=== PATIENT | female | born 1970 | race Caucasian/White ===

== ENCOUNTER 2017-11-08 00:32 | Emergency (ER) | payer SELFPAY ==
--- NOTE | 2017-11-08 00:57 | Emergency Department Record ---
History of Present Illness - General Chief complaint: Rash Stated complaint: ALLERGY ISSUES Time Seen by Provider: 11/08/17 00:55 Source: Patient Mode of Arrival: Ambulatory Limitations: No limitations - History of Present Illness Initial comments: The patient is here due to a pruritic skin rash over the last 2 days all over her body. She has had multiple chemical exposures and also came in contact with a cat and now has had an intermittent body rash that is very itchy. She denies any TOBY, SOB, or difficulty swallowing but does have mild chest heaviness like she gets with allergic rxn's. There is no hx of any cardiac issues and no CP with exertion. MD complaint: Rash Onset/Timin -: Days(s) Hx Tetanus Toxoid Vaccination: Yes Year of Tetanus Vaccination: 5 yr ago Location: Chest, LUE, RUE Improves with: Medication, Topical medication Associated symptoms: Itching Treatments Prior to Arrival: Benadryl, OTC topical medication - Related Data Home Medications Medication Instructions Recorded Confirmed Last Taken Famotidine [Pepcid AC] 10 mg PO DAILY 11/08/17 11/08/17 Unknown [place] 300 mg PO QAM 11/08/17 11/08/17 Unknown [place] 600 mg PO QHS 11/08/17 11/08/17 Unknown Previous Rx's Medication Instructions Recorded Prednisone [Prednisone 20Mg] 40 mg PO DAILY #8 tab 11/08/17 Allergies Allergy/AdvReac Type Severity Reaction Status Date / Time levofloxacin [From Levaquin] Allergy VOMITING Verified 09/23/13 12:51 sulfamethoxazole Allergy ITCHING Verified 09/23/13 12:51 [From Bactrim] trimethoprim [From Bactrim] Allergy ITCHING Verified 09/23/13 12:51 Travel Screening - Travel/Exposure Within Last 30 Days Have you traveled within the last 30 days?: No - Travel Symptoms Symptom Screening: None Review of Systems Constitutional: Denies: Chills, Fever Eyes: Denies: Eye discharge ENT: Denies: Congestion Respiratory: Denies: Cough, Dyspnea Past Medical History - SOCIAL HISTORY Smoking Status: Never smoker - RESPIRATORY Hx Respiratory Disorders: Yes Hx Asthma: No Comment:: environmental allergies - CARDIOVASCULAR Hx Cardio Disorders: Yes Hx Deep Vein Thrombosis: Yes (L leg) - NEURO Hx Neuro Disorders: Yes Hx Headaches: Yes Hx Seizures: Yes Comment:: cranial shingles - GI Hx GI Disorders: Yes Hx Reflux: Yes Hx Hiatal Hernia: Yes - Hx Genitourinary Disorders: No - ENDOCRINE Hx Endocrine Disorders: No - MUSCULOSKELETAL Hx Musculoskeletal Disorders: Yes Comment:: Gene of lupus - PSYCH Hx Psych Problems: Yes Hx Anxiety: Yes - HEMATOLOGY/ONCOLOGY Hx Hematology/Oncology Disorders: Yes Hx Clotting Problems: Yes Comment:: factor V Family Medical History Any Significant Family History?: Yes Hx Heart Disease: Mother Hx Stroke: Mother, Grandparents Physical Exam - General General Appearance: Alert, Oriented x3, Cooperative, No acute distress - Head Head exam: Atraumatic, Normocephalic, Normal inspection - Eye Eye exam: Normal appearance, PERRL - ENT Throat exam: Normal inspection. negative: Tonsillar erythema, Tonsillar exudate - Neck Neck exam: Normal inspection, Full ROM. negative: Tenderness - Respiratory Respiratory exam: Normal lung sounds bilaterally. negative: Respiratory distress - Cardiovascular Cardiovascular Exam: Regular rate, Normal rhythm, Normal heart sounds - GI/Abdominal GI/Abdominal exam: Soft, Normal bowel sounds. negative: Tenderness - Extremities Extremities exam: Normal inspection, Full ROM, Normal capillary refill. negative: Tenderness - Neurological Neurological exam: Alert. negative: Motor sensory deficit - Skin Skin exam: Rash (There is a scattered papular erythematous rash to the trunk and extremities. The lesions are anywhere from 3-8 mm in size and do joshua. They are very pruritic. ) Course Vital Signs 11/08/17 00:41 Temperature 98.4 F Pulse Rate [ 83 Pulse Ox Probe] Respiratory 18 Rate Blood Pressure 140/79 [Left Arm] Pulse Ox 96 - Reevaluation(s) Reevaluation #1: The patient is doing very well at this time. I did explain to her that her EKG has subtle changes that are probably normal for her. Due to the fact I cannot locate an old EKG I did recommend lab work and cardiac enzymes but the patient is refusing. I did explain to her that the risks of refusing are that she could go home and have an PR, become disabled, have a stroke, need a heart transplant and even . The patient understands and accepts the risks. She presently has proper decision making capacity. She is to F/U with her PCP for recheck early next week. 11/08/17 01:50 Medical Decision Making - Data Complexity MDM Data: EKG Ordered and/or Reviewed - EKG Data -: EKG Interpreted by Me EKG: No Acute Changes (NSR at 95, nonspecific ST-T changes diffuse leads. ) Disposition Disposition: Discharge Clinical Impression: Skin rash Disposition: Home, Self-Care Condition: (2) Stable Instructions: Acute Rash (ED) Additional Instructions: PLease continue the Benadryl at home and also continue the Prednisone. Please see your family doctor for recheck tomorrow or Sunday. Return to the ER for any worsening symptoms. Prescriptions: Prednisone [Prednisone 20Mg] 40 mg PO DAILY #8 tab Forms: Patient Portal Access Time of Disposition: 01:53 Quality - Quality Measures Quality Measures: N/A - Blood Pressure Screening View Details: Yes Does Patient Have Any of the Following: No Blood Pressure Classification: Hypertensive Reading Systolic Measurement: 152 Diastolic Measurement: 76 Screening for High Blood Pressure: < First Hypertensive BP, F/U Documented > [ G8950] First Hypertensive Follow-up Interventions: Referral to alternative/primary care provider.
[2017-11-08] MEDS ORDERED: PREDNISONE 20 MG TAB PO ONE (01:10)
== END 2017-11-08 02:00 | disposition home or self-care (01) ==
LOC: ER 00:32
DX: L25.9 Unspecified contact dermatitis, unspecified cause (principal); R07.89 Other chest pain
CPT/HCPCS: 99283 ×2; 93005; 93010; J7512

== ENCOUNTER 2018-03-06 16:05 | Emergency (ER) | payer SELFPAY ==
--- NOTE | 2018-03-06 16:30 | Emergency Department Record ---
History of Present Illness - General Chief Complaint: Mental health evaluation Stated Complaint: PSYCH Time Seen by Provider: 03/06/18 16:17 Source: Patient, EMS Mode of Arrival: EMS Limitations: No limitations Travel/Exposure to [place] Within 21 Days of Symptoms: No - History of Present Illness Initial Comments: The patient is here due to acting irrationally today. She was outside walking her dog with no shirt on then did get locked out of her house. She then misplaced her car and because of those issues did call 911 to bring her to the ER for help. The patient states she would like to go to [facility] where she has been in the past. She denies any suicidal or homicidal ideation. The patient does have a hx of Bipolar and Anxiety and did recently stop her [place]. MD Complaint: Other Onset/Timin -: Hour(s) Associated Psychiatric Symptoms: Other Context: Not taking psychiatric medications - [place] Coma Scale Eye Response: (4) Open spontaneously Motor Response: (6) Obeys commands Verbal Response: (5) Oriented [place] Total: 15 - Related Data Allergies Allergy/AdvReac Type Severity Reaction Status Date / Time levofloxacin [From Levaquin] Allergy VOMITING Verified 03/06/18 16:13 sulfamethoxazole Allergy ITCHING Verified 03/06/18 16:13 [From Bactrim] trimethoprim [From Bactrim] Allergy ITCHING Verified 03/06/18 16:13 Past Medical History - SOCIAL HISTORY Smoking Status: Never smoker Alcohol Use: None Drug Use: None - RESPIRATORY Hx Respiratory Disorders: Yes Hx Asthma: No Comment:: environmental allergies - CARDIOVASCULAR Hx Cardio Disorders: Yes Hx Deep Vein Thrombosis: Yes (L leg) - NEURO Hx Neuro Disorders: Yes Hx Headaches: Yes Hx Seizures: Yes Comment:: cranial shingles - GI Hx GI Disorders: Yes Hx Reflux: Yes Hx Hiatal Hernia: Yes - Hx Genitourinary Disorders: No - ENDOCRINE Hx Endocrine Disorders: No - MUSCULOSKELETAL Hx Musculoskeletal Disorders: Yes Comment:: Gene of lupus - PSYCH Hx Psych Problems: Yes Hx Anxiety: Yes - HEMATOLOGY/ONCOLOGY Hx Hematology/Oncology Disorders: Yes Hx Clotting Problems: Yes Comment:: factor V Family Medical History Any Significant Family History?: Yes Hx Heart Disease: Mother Hx Stroke: Mother, Grandparents Physical Exam - General General Appearance: Alert, Oriented x3, Cooperative, No acute distress - Head Head exam: Atraumatic, Normocephalic, Normal inspection - Eye Eye exam: Normal appearance, PERRL, EOMI - Neck Neck exam: Normal inspection, Full ROM. negative: Tenderness - Respiratory Respiratory exam: Normal lung sounds bilaterally. negative: Respiratory distress - Cardiovascular Cardiovascular Exam: Regular rate, Normal rhythm, Normal heart sounds - GI/Abdominal GI/Abdominal exam: Soft, Normal bowel sounds. negative: Tenderness - Extremities Extremities exam: Normal inspection, Full ROM, Normal capillary refill. negative: Tenderness - Back Back exam: Reports: Normal inspection - Neurological Neurological exam: Alert, Normal gait, Oriented X3. negative: Abnormal gait, Altered, Motor sensory deficit - Psychiatric Psychiatric exam: Normal affect, Normal mood. negative: Anxious, Depressed, Flat affect Course Vital Signs 03/06/18 16:16 Temperature 98 F Pulse Rate 97 H Respiratory 20 Rate Blood Pressure 144/79 Pulse Ox 100 - Reevaluation(s) Reevaluation #1: The patient is resting comfortably. She denies any problems or pain. I did discuss the lab results and the need for transfer to [facility]. The patient is intermittently talking to imaginary people in the room and laughing to herself. 03/06/18 18:21 03/06/18 18:31 Reevaluation #2: I did discuss the case with a [facility] continuous pillowcase cutter and she is aware of the patient and the fact we are waiting on the [place] level. We will start faxing the results to the patient. 03/06/18 18:28 Medical Decision Making - Data Complexity MDM Data: Labs Ordered and/or Reviewed - Lab Data Result diagrams: 03/06/18 16:35 03/06/18 16:35 Disposition Disposition: Transfer Clinical Impression: Psychosis Qualifiers: Psychosis type: unspecified psychosis type Qualified Code(s): F29 - Unspecified psychosis not due to a substance or known physiological condition Disposition: Psychiatric Hospital Transfer To: [facility] Reason For Transfer: Psych. Accepting Physician: Adam Time Discussed w/Accepting Physician: 18:24 Condition: (2) Stable Instructions: Psychotic Disorder (ED) Forms: Patient Portal Access Time of Disposition: 18:24 Quality - Quality Measures Quality Measures: N/A - Blood Pressure Screening View Details: Yes Does Patient Have Any of the Following: No Blood Pressure Classification: Pre-Hypertensive BP Reading Systolic Measurement: 126 Diastolic Measurement: 78 Screening for High Blood Pressure: < Pre-Hypertensive BP, F/U Documented > [ G8950] Pre-Hypertensive Follow-up Interventions: Referral to alternative/primary care provider.
[2018-03-06 16:44] LABS: BASO % 0.8 % (0-6); EOS % 2.3 % (0-6); GRAN % 74.8 % (47-80); HEMATOCRIT 40.4 % (35.0-47.0); LYMPH % 15.4 % (16-45); MEAN CELL VOLUME 91.4 fl (81-97); MEAN CORPUSCULAR HEMOGLOBIN 29.4 pg (27-33); MEAN CORPUSCULAR HGB CONC 32.2 g/dl (32-36); MEAN PLATELET VOLUME 9.4 fl (7.4-10.4); MONO % 6.7 % (0-9); PLATELET COUNT 356 K/uL (130-400); RED BLOOD COUNT 4.42 M/uL (3.80-5.40); RED CELL DISTRIBUTION WIDTH 12.6 % (11.5-14.5); WHITE BLOOD COUNT W/O DIFF 8.7 K/uL (4.2-12.2)
[2018-03-06 16:58] LABS: BILIRUBIN,TOTAL 0.4 mg/dL (0.2-1.0); CREATININE 1.1 mg/dL (0.5-0.9)
[2018-03-06 16:59] LABS: TOTAL PROTEIN 7.8 g/dL (6.6-8.7)
[2018-03-06 17:03] LABS: ALB/GLOB RATIO 1.4 (1.1-1.8); ALBUMIN 4.6 g/dL (4.0-5.0)
[2018-03-06 17:15] LABS: ACETAMINOPHEN < 0.5 ug/mL (10.0-30.0); SALICYLATE 1.2 mg/dL (2.8-20)
[2018-03-06 17:49] LABS: URINE APPEARANCE CLEAR; URINE BILIRUBIN NEGATIVE (NEGATIVE); URINE BLOOD TRACE-I (NEGATIVE); URINE COLOR YELLOW; URINE GLUCOSE (UA) NEGATIVE (NEGATIVE); URINE KETONE TRACE (NEGATIVE); URINE LEUKOCYTE ESTERASE NEGATIVE (NEGATIVE); URINE NITRITE NEGATIVE (NEGATIVE); URINE PROTEIN NEGATIVE (NEGATIVE); URINE UROBILINOGEN 0.2 E.U./dL (0.20 - 1.00)
[2018-03-06 17:52] LABS: AMPHETAMINE SCREEN URINE NOT DETECTED; BARBITURATE SCREEN URINE NOT DETECTED; BENZODIAZEPINE SCREEN URINE NOT DETECTED; COCAINE SCREEN URINE NOT DETECTED; METHADONE SCREEN URINE NOT DETECTED; METHAMPHETAMINE SCREEN NOT DETECTED; OPIATE SCREEN URINE NOT DETECTED; OXYCODONE SCREEN URINE NOT DETECTED; PHENCYCLIDINE SCREEN URINE NOT DETECTED; PROPOXYPHENE SCREEN URINE NOT DETECTED; THC SCREEN URINE NOT DETECTED; TRICYCLIC ANTIDEPRESSANT SCRN NOT DETECTED
[2018-03-06 17:59] LABS: URINE RBC 0 - 2 (NONE SEEN); URINE WBC NONE SEEN (0-2/hpf)
--- NOTE | 2018-03-06 22:38 | Emergency Department Record ---
History of Present Illness - General Chief Complaint: Mental health evaluation Stated Complaint: PSYCH Time Seen by Provider: 03/06/18 16:17 Source: Patient, EMS Mode of Arrival: EMS Travel/Exposure to [place] Within 21 Days of Symptoms: No - History of Present Illness Onset/Timin -: Hour(s) Associated Psychiatric Symptoms: Other Context: Not taking psychiatric medications - [place] Coma Scale Eye Response: (4) Open spontaneously Motor Response: (6) Obeys commands Verbal Response: (5) Oriented [place] Total: 15 - Related Data Allergies Allergy/AdvReac Type Severity Reaction Status Date / Time levofloxacin [From Levaquin] Allergy VOMITING Verified 03/06/18 16:13 sulfamethoxazole Allergy ITCHING Verified 03/06/18 16:13 [From Bactrim] trimethoprim [From Bactrim] Allergy ITCHING Verified 03/06/18 16:13 Past Medical History - SOCIAL HISTORY Smoking Status: Never smoker Alcohol Use: None Drug Use: None - RESPIRATORY Hx Respiratory Disorders: Yes Hx Asthma: No Comment:: environmental allergies - CARDIOVASCULAR Hx Cardio Disorders: Yes Hx Deep Vein Thrombosis: Yes (L leg) - NEURO Hx Neuro Disorders: Yes Hx Headaches: Yes Hx Seizures: Yes Comment:: cranial shingles - GI Hx GI Disorders: Yes Hx Reflux: Yes Hx Hiatal Hernia: Yes - Hx Genitourinary Disorders: No - ENDOCRINE Hx Endocrine Disorders: No - MUSCULOSKELETAL Hx Musculoskeletal Disorders: Yes Comment:: Gene of lupus - PSYCH Hx Psych Problems: Yes Hx Anxiety: Yes - HEMATOLOGY/ONCOLOGY Hx Hematology/Oncology Disorders: Yes Hx Clotting Problems: Yes Comment:: factor V Family Medical History Any Significant Family History?: Yes Hx Heart Disease: Mother Hx Stroke: Mother, Grandparents Physical Exam - General Limitations: No limitations Course Vital Signs 03/06/18 03/06/18 03/06/18 16:16 18:34 19:51 Temperature 98 F Pulse Rate 97 H Pulse Rate [ 95 H 97 H Pulse Ox Probe] Respiratory 20 20 18 Rate Blood Pressure 144/79 Blood Pressure 154/82 166/99 [Left Arm] Pulse Ox 100 99 100 - Reevaluation(s) Reevaluation #1: 20:30 PM [place] level reported to be 0.7, copy faxed to [facility] for review. 21:34 PM [facility] contacted re: timeline for evaluation, they are reviewing patient's chart at this time. Waiting for discharges/transfers to make room at [facility] for evaluation. 22:22 PM [facility] returned call, report that the patient does have insurance. Patient reports that she does not have active insurance, registration cannot find the patient in any current insurance database. Patient reports that she is recently , may have been on SO's insurance previously. 22:30 PM [facility] contacted to let them know, they will wait for the "next shift to come on" for further evaluation. 03/06/18 23:39 Rewritten certification and [place] lab refaxed to [facility] for review. Patient is resting comfortably after oral Zyprexa. 03/07/18 01:09 [facility] has accepted the patient for transfer. EMS contacted for transfer. Medical Decision Making - Lab Data Result diagrams: 03/06/18 16:35 03/06/18 16:35 Lab Results 03/06/18 03/06/18 03/06/18 Range/Units 16:35 16:35 16:35 WBC 8.7 (4.2-12.2) K/uL RBC 4.42 (3.80-5.40) M/uL Hgb 13.0 (11.6-16.0) gm/dl Hct 40.4 (35.0-47.0) % MCV 91.4 (81-97) fl MCH 29.4 (27-33) pg MCHC 32.2 (32-36) g/dl RDW 12.6 (11.5-14.5) % Plt Count 356 (130-400) K/uL MPV 9.4 (7.4-10.4) fl Gran % 74.8 (47-80) % Lymphocytes % 15.4 L (16-45) % Monocytes % 6.7 (0-9) % Eosinophils % 2.3 (0-6) % Basophils % 0.8 (0-6) % Sodium 142 (136-145) mmol/L Potassium 3.8 (3.4-4.5) mmol/L Chloride 102 (98-107) mmol/L Carbon Dioxide 27.0 (22-29) mmol/L Anion Gap 13.0 (7-16) BUN 16 (6-20) mg/dL Creatinine 1.1 H (0.5-0.9) mg/dL Estimated GFR 57 mL/min Random Glucose 131 H (74-109) mg/dL Calcium 10.7 H (8.6-10.0) mg/dL Total Bilirubin 0.40 (0.2-1.0) mg/dL AST 20 (10.0-35.0) U/L ALT 30 (<33) U/L Alkaline Phosphatase 87 (35-104) U/L Total Protein 7.8 (6.6-8.7) g/dL Albumin 4.6 (4.0-5.0) g/dL Globulin 3.2 (1.4-4.8) gm/dL Albumin/Globulin Ratio 1.4 (1.1-1.8) Serum HCG, Qual Negative (NEGATIVE) Urine Color Urine Appearance Urine pH (5.0-8.0) Ur Specific [place] (1.002-1.030) Urine Protein (NEGATIVE) Urine Glucose (UA) (NEGATIVE) Urine Ketones (NEGATIVE) Urine Blood (NEGATIVE) Urine Nitrite (NEGATIVE) Urine Bilirubin (NEGATIVE) Urine Urobilinogen (0.20 - 1.00) E.U./dL Ur Leukocyte Esterase (NEGATIVE) Urine RBC (NONE SEEN) Urine WBC (0-2/hpf) Ur Epithelial Cells (FEW) Salicylates (2.8-20) mg/dL Urine Opiates Screen Ur Oxycodone Screen Urine Methadone Screen Ur Propoxyphene Screen Acetaminophen (10.0-30.0) ug/mL Ur Barbituates Screen Ur Tricyclics Screen Ur Phencyclidine Scrn Ur Amphetamine Screen U Methamphetamines Scrn U Benzodiazepines Scrn [place] (0.5-1.2) mmol/L Urine Cocaine Screen Urine Cannabis Screen Ethyl Alcohol (0-0.010) g/dL 03/06/18 03/06/18 03/06/18 Range/Units 16:35 16:35 17:45 WBC (4.2-12.2) K/uL RBC (3.80-5.40) M/uL Hgb (11.6-16.0) gm/dl Hct (35.0-47.0) % MCV (81-97) fl MCH (27-33) pg MCHC (32-36) g/dl RDW (11.5-14.5) % Plt Count (130-400) K/uL MPV (7.4-10.4) fl Gran % (47-80) % Lymphocytes % (16-45) % Monocytes % (0-9) % Eosinophils % (0-6) % Basophils % (0-6) % Sodium (136-145) mmol/L Potassium (3.4-4.5) mmol/L Chloride (98-107) mmol/L Carbon Dioxide (22-29) mmol/L Anion Gap (7-16) BUN (6-20) mg/dL Creatinine (0.5-0.9) mg/dL Estimated GFR mL/min Random Glucose (74-109) mg/dL Calcium (8.6-10.0) mg/dL Total Bilirubin (0.2-1.0) mg/dL AST (10.0-35.0) U/L ALT (<33) U/L Alkaline Phosphatase (35-104) U/L Total Protein (6.6-8.7) g/dL Albumin (4.0-5.0) g/dL Globulin (1.4-4.8) gm/dL Albumin/Globulin Ratio (1.1-1.8) Serum HCG, Qual (NEGATIVE) Urine Color Urine Appearance Urine pH (5.0-8.0) Ur Specific [place] (1.002-1.030) Urine Protein (NEGATIVE) Urine Glucose (UA) (NEGATIVE) Urine Ketones (NEGATIVE) Urine Blood (NEGATIVE) Urine Nitrite (NEGATIVE) Urine Bilirubin (NEGATIVE) Urine Urobilinogen (0.20 - 1.00) E.U./dL Ur Leukocyte Esterase (NEGATIVE) Urine RBC (NONE SEEN) Urine WBC (0-2/hpf) Ur Epithelial Cells (FEW) Salicylates 1.2 L (2.8-20) mg/dL Urine Opiates Screen Not detected Ur Oxycodone Screen Not detected Urine Methadone Screen Not detected Ur Propoxyphene Screen Not detected Acetaminophen < 0.5 L (10.0-30.0) ug/mL Ur Barbituates Screen Not detected Ur Tricyclics Screen Not detected Ur Phencyclidine Scrn Not detected Ur Amphetamine Screen Not detected U Methamphetamines Scrn Not detected U Benzodiazepines Scrn Not detected [place] 0.7 (0.5-1.2) mmol/L Urine Cocaine Screen Not detected Urine Cannabis Screen Not detected Ethyl Alcohol 0.010 (0-0.010) g/dL 03/06/18 Range/Units 17:45 WBC (4.2-12.2) K/uL RBC (3.80-5.40) M/uL Hgb (11.6-16.0) gm/dl Hct (35.0-47.0) % MCV (81-97) fl MCH (27-33) pg MCHC (32-36) g/dl RDW (11.5-14.5) % Plt Count (130-400) K/uL MPV (7.4-10.4) fl Gran % (47-80) % Lymphocytes % (16-45) % Monocytes % (0-9) % Eosinophils % (0-6) % Basophils % (0-6) % Sodium (136-145) mmol/L Potassium (3.4-4.5) mmol/L Chloride (98-107) mmol/L Carbon Dioxide (22-29) mmol/L Anion Gap (7-16) BUN (6-20) mg/dL Creatinine (0.5-0.9) mg/dL Estimated GFR mL/min Random Glucose (74-109) mg/dL Calcium (8.6-10.0) mg/dL Total Bilirubin (0.2-1.0) mg/dL AST (10.0-35.0) U/L ALT (<33) U/L Alkaline Phosphatase (35-104) U/L Total Protein (6.6-8.7) g/dL Albumin (4.0-5.0) g/dL Globulin (1.4-4.8) gm/dL Albumin/Globulin Ratio (1.1-1.8) Serum HCG, Qual (NEGATIVE) Urine Color Yellow Urine Appearance Clear Urine pH 7.0 (5.0-8.0) Ur Specific [place] 1.020 (1.002-1.030) Urine Protein Negative (NEGATIVE) Urine Glucose (UA) Negative (NEGATIVE) Urine Ketones Trace H (NEGATIVE) Urine Blood Trace-i (NEGATIVE) Urine Nitrite Negative (NEGATIVE) Urine Bilirubin Negative (NEGATIVE) Urine Urobilinogen 0.2 (0.20 - 1.00) E.U./dL Ur Leukocyte Esterase Negative (NEGATIVE) Urine RBC 0 - 2 (NONE SEEN) Urine WBC None seen (0-2/hpf) Ur Epithelial Cells 7 - 10 (FEW) Salicylates (2.8-20) mg/dL Urine Opiates Screen Ur Oxycodone Screen Urine Methadone Screen Ur Propoxyphene Screen Acetaminophen (10.0-30.0) ug/mL Ur Barbituates Screen Ur Tricyclics Screen Ur Phencyclidine Scrn Ur Amphetamine Screen U Methamphetamines Scrn U Benzodiazepines Scrn [place] (0.5-1.2) mmol/L Urine Cocaine Screen Urine Cannabis Screen Ethyl Alcohol (0-0.010) g/dL Disposition Clinical Impression: Psychosis Qualifiers: Psychosis type: unspecified psychosis type Qualified Code(s): F29 - Unspecified psychosis not due to a substance or known physiological condition Disposition: Psychiatric Hospital Condition: (2) Stable Instructions: Psychotic Disorder (ED) Forms: Patient Portal Access Quality - Quality Measures Quality Measures: N/A - Blood Pressure Screening Does Patient Have Any of the Following: No Blood Pressure Classification: Hypertensive Reading Systolic Measurement: 144 Diastolic Measurement: 79 Screening for High Blood Pressure: < First Hypertensive BP, F/U Documented > [ G8950] First Hypertensive Follow-up Interventions: Referral to alternative/primary care provider.
[2018-03-07] MEDS ORDERED: ONDANSETRON 4 MG ODT TABLET SL ONE (01:16)
[2018-03-07] MEDS ORDERED: OLANZAPINE 5MG TABLET PO SCH (10:00)
== END 2018-03-07 02:38 ==
LOC: ER 16:05
DX: F29 Unspecified psychosis not due to a substance or known physiological condition (principal); F31.9 Bipolar disorder, unspecified; Z91.14 Patient's other noncompliance with medication regimen
CPT/HCPCS: 99285 ×2; 85025; 80053; 81001; 84703; 80305; G0480 ×3; 80320; 80329

== ENCOUNTER 2018-08-02 22:04 | Emergency (ER) | payer MEDICAID ==
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
[2018-08-02] MEDS ORDERED: SIMETH/SOD BICARB/CIT AC EFF PKT PO ONE (22:47)
[2018-08-02 23:11] LABS: BASO % 0.7 % (0-6); EOS % 4.1 % (0-6); GRAN % 69.6 % (47-80); HEMATOCRIT 43.5 % (35.0-47.0); HEMOGLOBIN 13.8 gm/dl (11.6-16.0); LYMPH % 19.9 % (16-45); MEAN CELL VOLUME 90.1 fl (81-97); MEAN CORPUSCULAR HEMOGLOBIN 28.6 pg (27-33); MEAN CORPUSCULAR HGB CONC 31.7 g/dl (32-36); MEAN PLATELET VOLUME 9.1 fl (7.4-10.4); MONO % 5.7 % (0-9); PLATELET COUNT 378 K/uL (130-400); RED BLOOD COUNT 4.83 M/uL (3.80-5.40); RED CELL DISTRIBUTION WIDTH 13.5 % (11.5-14.5); WHITE BLOOD COUNT W/O DIFF 10.8 K/uL (4.2-12.2)
[2018-08-02 23:12] LABS: URINE APPEARANCE CLEAR; URINE BILIRUBIN NEGATIVE (NEGATIVE); URINE BLOOD NEGATIVE (NEGATIVE); URINE COLOR YELLOW; URINE GLUCOSE (UA) NEGATIVE (NEGATIVE); URINE KETONE NEGATIVE (NEGATIVE); URINE LEUKOCYTE ESTERASE NEGATIVE (NEGATIVE); URINE NITRITE NEGATIVE (NEGATIVE); URINE PROTEIN NEGATIVE (NEGATIVE); URINE UROBILINOGEN 0.2 E.U./dL (0.20 - 1.00)
[2018-08-02 23:15] LABS: AMPHETAMINE SCREEN URINE NOT DETECTED; BARBITURATE SCREEN URINE NOT DETECTED; BENZODIAZEPINE SCREEN URINE NOT DETECTED; COCAINE SCREEN URINE NOT DETECTED; METHADONE SCREEN URINE NOT DETECTED; METHAMPHETAMINE SCREEN NOT DETECTED; OPIATE SCREEN URINE NOT DETECTED; OXYCODONE SCREEN URINE NOT DETECTED; PHENCYCLIDINE SCREEN URINE NOT DETECTED; PROPOXYPHENE SCREEN URINE NOT DETECTED; THC SCREEN URINE NOT DETECTED; TRICYCLIC ANTIDEPRESSANT SCRN NOT DETECTED
[2018-08-02 23:22] LABS: BLOOD UREA NITROGEN 22 mg/dL (6-20); CREATININE 0.9 mg/dL (0.5-0.9); EST GLOMERULAR FILTRATION RATE > 60 mL/min
[2018-08-02 23:23] LABS: TOTAL PROTEIN 7.3 g/dL (6.6-8.7)
[2018-08-02 23:24] LABS: GLUCOSE,RANDOM 167 mg/dL (74-109)
[2018-08-02 23:27] LABS: ALB/GLOB RATIO 1.6 (1.1-1.8); ALBUMIN 4.5 g/dL (4.0-5.0); ALKALINE PHOSPHATASE 85 U/L (35-104); ALT/SGPT 35 U/L (<33); AST/SGOT 19 U/L (10.0-35.0)
== END 2018-08-02 23:51 | disposition home or self-care (01) ==
LOC: ER 22:04
DX: K21.9 Gastro-esophageal reflux disease without esophagitis (principal); K44.9 Diaphragmatic hernia without obstruction or gangrene
CPT/HCPCS: 80053; 80305; 81003; 84443; 85025; 93005; 93010; 99284